=== PATIENT | male | born 1990 ===

== ENCOUNTER 2025-05-01 02:46 | Emergency (ER) | payer MEDICAID, OTHER ==
[2025-05-01 02:51] VITALS: PULSE 53
--- NOTE | 2025-05-01 02:52 | ECG ---
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
== END 2025-05-01 02:57 | disposition left against medical advice (07) ==
LOC: ER 02:46
DX: R07.89 Other chest pain (principal)
CPT/HCPCS: 93005